=== PATIENT | female | born 1990 | race American Indian/Alaskan Native ===

== ENCOUNTER 2017-07-08 15:46 | Emergency (ER) | payer MEDICAID ==
[2017-07-08 15:57] VITALS: BP 113/80
--- NOTE | 2017-07-08 19:23 | Emergency Department Report ---
HPI - General Chief Complaint: Upper Respiratory Infection Time Seen by Provider: 07/08/17 19:17 - HPI HPI: Patient here reports sinus pressure, body aches, nasal stuffiness, burning eyes. Pain 6/10 face and achy. Took otc sinus medication without any relief. Since that she's been having symptoms for over 1 week but it lasts 3 days it's been getting worse. Denies any cough, shortness of breath or chest pain. Eyes any sore throat. Denies Any fever or chills. Pt reports that she is 12 weeks and she has EDUCATIONAL PROGRAMMING DIRECTOR who she called and they recommended over-the- counter sinus medication but it did not help her. Patient denies any related problem to include abdominal pain, back pain, vaginal discharge or vaginal bleeding. The urinary burning frequency urgency. ED Past Medical Hx - Past Medical History Previous Medical History?: No - Surgical History Past Surgical History?: No - Family History Family history: no significant - Social History Smoking Status: Never Smoker Substance Use Type: None Other Social History: Weeks' and followed by EDUCATIONAL PROGRAMMING DIRECTOR - Medications Home Medications: Home Medications Medication Instructions Recorded Confirmed Last Taken Type Amoxicillin [Amoxicillin TAB] 875 mg PO BID #14 tablet 07/08/17 Unknown Rx guaiFENesin [Mucinex] 600 mg PO Q12H #10 tab.er.12h 07/08/17 Unknown Rx ED Review of Systems ROS: Stated complaint: 12 WKS PREG/HEADACHE/FACIAL PRESSURE/ Other details as noted in HPI Comment: All other systems reviewed and negative Constitutional: no symptoms reported Eyes: other (Burning eyes). denies: eye discharge, vision change ENT: congestion, other (Facial pain). denies: ear pain, throat pain, hearing loss Respiratory: no symptoms reported Cardiovascular: denies: chest pain, palpitations, dyspnea on exertion, orthopnea , edema, syncope Gastrointestinal: denies: abdominal pain, nausea, vomiting, diarrhea, constipation Musculoskeletal: myalgia. denies: back pain, arthralgia Skin: denies: rash Neurological: denies: headache, weakness, numbness, paresthesias, abnormal gait , vertigo Physical Exam - Physical Exam Vital Signs: Vital Signs 07/08/17 15:54 Temperature 98.2 F Pulse Rate 90 Respiratory 18 Rate Blood Pressure 113/80 O2 Sat by Pulse 98 Oximetry General: This is a 27-year-old female well-nourished well-developed in no acute distress. Physical Exam: Head: Normocephalic, atraumatic, no abrasion, no bruising and no contusion. Eyes: Biateral pupils equal and reactive to light, bilateral EOM intact.. Bilateral conjunctival and sclera without injection, normal accommodation. Ears: Bilateral EAC without any redness drainage or swelling, bilateral TM congested without erythema Nose: Frontal and maxillary sinuses tender to palpate, bilateral nasal mucosa congested with erythema and clear drainage. Mouth: No pharyngeal exudate or erythema. Uvula is midline and oral airways patent. Moist and tongue is normal Neck: Supple, no adenopathy, full range of motion and no C-spine tenderness. No swelling or tracheal deviation Cardiovascular: S1, S2. Regular rate and rhythm. No murmur. Capillary refill is less then 3 seconds. Lungs: Clear to auscultate bilaterally. No rhonchi, wheezes or rales. No chest wall tenderness MSK: Strength 5/5 in all extremities. No joint deformity or crepitus. Normal inspection. Full range of motion to all extremities Extremities: No clubbing, cyanosis or edema. +2 pulses. No neurovascular compromise Psych: Normal mood and behavior. ED Course Vital Signs 07/08/17 15:54 Temperature 98.2 F Pulse Rate 90 Respiratory 18 Rate Blood Pressure 113/80 O2 Sat by Pulse 98 Oximetry - Reevaluation(s) Reevaluation #1: 07/08/17 19:45 Stable throughout ED stay ED Medical Decision Making - Medical Decision Making Course: Patient had presented with sinus pain and pressure, congestion and was found to have acute sinusitis. She is 12 weeks without any related problem and she's been followed by EDUCATIONAL PROGRAMMING DIRECTOR. Discussed the patient that she I'll start her on Mucinex and antibiotic and she will need to flush her nostrils out with saline nasal wash. I discussed with her she needs to call her EDUCATIONAL PROGRAMMING DIRECTOR in the morning to schedule follow-up visit. She voiced Understanding and is discharged diagnosis and treatment plan. Assessment/plan 1. Acute sinusitis 2. Myalgia 3. at 12 week per patient Patient discharged home with prescription for Mucinex, amoxicillin and to follow -up with her EDUCATIONAL PROGRAMMING DIRECTOR in 2-3 days. Discharged home in stable condition Critical care attestation.: If time is entered above; I have spent that time in minutes in the direct care of this critically ill patient, excluding procedure time. ED Disposition Clinical Impression: Myalgia Sinusitis Qualifiers: Sinusitis location: unspecified location Chronicity: acute Recurrence: not specified as recurrent Qualified Code(s): J01.90 - Acute sinusitis, unspecified Qualifiers: Weeks of gestation: unspecified Qualified Code(s): Z34.90 - Encounter for supervision of normal , unspecified, unspecified trimester Disposition: TO HOME OR SELFCARE Is pt being admited?: No Does the pt Need Aspirin: No Condition: Stable Instructions: Sinusitis (ED), (ED) Additional Instructions: Please follow up with EDUCATIONAL PROGRAMMING DIRECTOR in 2-3 days Take Medication as prescribed Increase your fluid intake Use saline nasal wash to flush your nostrils out twice daily Prescriptions: Amoxicillin [Amoxicillin TAB] 875 mg PO BID #14 tablet guaiFENesin [Mucinex] 600 mg PO Q12H #10 tab.er.12h Referrals: Your, EDUCATIONAL PROGRAMMING DIRECTOR [Other] - 2-3 Days Forms: Work/School Release Form(ED)
== END 2017-07-08 19:58 | disposition home or self-care (01) ==
LOC: ED 15:46
DX: O99.511 Diseases of the respiratory system complicating pregnancy, first trimester (principal); J01.90 Acute sinusitis, unspecified; M79.1 Myalgia; Z3A.12 12 weeks gestation of pregnancy
CPT/HCPCS: 99282